=== PATIENT | female | born 1990 | race Caucasian/White ===

== ENCOUNTER 2023-09-18 10:26 | Outpatient (OUT) | payer OTHER, SELFPAY ==
[2023-09-18 10:50] LABS: Basophils Percent Auto 0.3 % (0.2-2.0); Eosinophils Absolute Auto 0.1 10^3/uL (0.0-0.7); Eosinophils Percent Auto 1.4 % (0.9-7.0); Hematocrit 44.4 % (36.0-48.0); Hemoglobin 14.1 g/dL (12.0-16.0); Lymphocytes Absolute Auto 1.6 10^3/uL (1.2-3.8); Lymphocytes Percent Auto 26.6 % (20.5-60.0); Mean Corpuscular HGB Conc 31.8 g/dL (29.9-35.2); Mean Corpuscular Hemoglobin 29.4 pg (26.7-34.0); Mean Corpuscular Volume 92.7 fL (81.0-99.0); Mean Platelet Volume 12.7 fL (9.5-13.5); Monocytes Absolute Auto 0.4 10^3/uL (0.3-0.8); Monocytes Percent Auto 6.3 % (1.7-12.0); Neutrophils Absolute Auto 3.8 10^3/uL (1.4-6.5); Neutrophils Percent Auto 65.4 % (43.0-75.0); Platelet Count 180 10^3/uL (150-450); Red Blood Count 4.79 10^6/uL (4.20-5.40); Red Cell Distribution Width 12.4 % (11.0-15.0); White Blood Count 5.8 10^3/uL (4.0-11.0)
[2023-09-18 11:19] LABS: HCG Quantitative <1 mIU/mL; Thyroid Stimulating Hormone 0.981 uIU/mL (0.358-3.740)
[2023-09-18 11:37] LABS: Estimated Average Glucose 97 mg/dL
[2023-09-18 11:42] LABS: Free T4 0.95 ng/dL (0.76-1.46)
[2023-09-19 08:12] LABS: FSH 12.8 mIU/mL (.); Luteinizing Hormone(LH) 11.2 mIU/mL (.); Prolactin 3.1 ng/mL (4.8-23.3)
[2023-09-23 15:09] LABS: DHEA, Serum 349 ng/dL (31-701)
== END 2023-09-18 10:27 | disposition home or self-care (01) ==
LOC: LAB 10:29
PROVIDERS: Visit Provider Obstetrics & Gynecology
DX: N92.6 Irregular menstruation, unspecified (principal)
CPT/HCPCS: 36415; 82626; 82627; 83001; 83002; 83036; 84146; 84439; 84443; 84702; 85025; 99999

== ENCOUNTER 2023-10-09 14:40 | Outpatient (OUT) | payer OTHER, SELFPAY ==
--- NOTE | 2023-10-09 | US_ITS ---
The [address] [address] Patient Name: JASMINE DAS MRN: [id number] date: 1990 Sex: F Assigned Patient Location: US Current Patient Location: US Accession/Order Number: [id number] Exam Date: 10/09/2023 14:41 Report Date: 10/09/2023 17:21 At the request of: DEVI CARR Procedure: US pelvis transvaginal EXAM: US pelvis transvaginal HISTORY: INFERTILITY, IRREGULAR MENSES COMPARISON: None. TECHNIQUE: Pelvic sonography was performed utilizing grayscale and color Doppler technique. FINDINGS: Retroverted uterus measures 7.2 x 3.6 x 4.3 cm. Uterine endometrial stripe measures 0.5 cm in thickness. Right ovary measures 3.0 x 1.9 x 3.0 cm. Normal right ovarian parenchyma. Left ovary measures 2.1 x 1.5 x 1.8 cm. Normal left ovarian parenchyma. No significant free fluid within the pelvis. US/US pelvis transvaginal IMPRESSION: Normal examination. Electronically authenticated by: LASHANDA VELEZ Date: 10/09/2023 17:21
== END 2023-10-09 14:41 | disposition home or self-care (01) ==
LOC: US 14:40
PROVIDERS: Visit Provider Obstetrics & Gynecology
DX: N92.6 Irregular menstruation, unspecified (principal)
CPT/HCPCS: 76830

== ENCOUNTER 2023-10-23 14:33 | Outpatient (RCR) | payer OTHER, SELFPAY ==
[2023-10-23 15:38] LABS: HCG Quantitative 1735 mIU/mL
== END 2023-10-23 16:57 | disposition home or self-care (01) ==
LOC: LAB 14:33
PROVIDERS: Visit Provider Obstetrics & Gynecology
DX: N92.6 Irregular menstruation, unspecified (principal)
CPT/HCPCS: 36415; 84702

== ENCOUNTER 2023-10-25 07:10 | Outpatient (OUT) | payer OTHER, SELFPAY ==
[2023-10-28 09:56] LABS: HCG Quantitative 4015 mIU/mL
== END 2023-10-25 07:11 | disposition home or self-care (01) ==
PROVIDERS: Visit Provider Obstetrics & Gynecology
DX: N92.6 Irregular menstruation, unspecified (principal)
CPT/HCPCS: 36415; 84702; 84703

== ENCOUNTER 2023-12-05 09:36 | Outpatient (OUT) | payer OTHER, SELFPAY ==
--- NOTE | 2023-12-05 09:37 | US_ITS ---
[address] [address] Patient Name: JASIMNE DAS MRN: [id number] date: 1990 Sex: F Assigned Patient Location: US Current Patient Location: US Accession/Order Number: [id number] Exam Date: 12/05/2023 09:38 Report Date: 12/05/2023 10:18 At the request of: DEVI CARR Procedure: US OB transvaginal EXAMINATION: US OB transvaginal HISTORY: Missed menses COMPARISON: No relevant comparison available. FINDINGS: Transvaginal images Guerrero intrauterine gestation Gestational sac: 4.8 cm, 10 weeks 4 days CRL: 3.8 cm, 10 weeks 5 days Heart rate: 164 bpm Cervix: Closed, 4.9 cm The uterus is normal The right ovary is normal. Left ovary is not visualized Clinical age: Unknown Ultrasound age: 10 weeks 5 days Ultrasound ANNABELLE: 06/27/2024 US/US OB transvaginal IMPRESSION: Viable guerrero intrauterine gestation measuring 10 weeks 5 days Electronically authenticated by: ABRAHAM DUGGAN Date: 12/05/2023 10:18
== END 2023-12-05 09:37 | disposition home or self-care (01) ==
LOC: US 09:36
PROVIDERS: Visit Provider Obstetrics & Gynecology
DX: Z34.91 Encounter for supervision of normal pregnancy, unspecified, first trimester (principal); Z3A.10 10 weeks gestation of pregnancy; N92.6 Irregular menstruation, unspecified
CPT/HCPCS: 76817

== ENCOUNTER 2024-01-22 19:08 | Outpatient (REF) | payer OTHER, SELFPAY ==
[2024-01-27 15:10] LABS: Age Gdln ACOG Testing Note (.); HPV Aptima Negative (Negative); IGP, Aptima HPV, rfx 16/18,45 Note (.)
== END 2024-01-22 19:09 | disposition home or self-care (01) ==
LOC: LAB 19:08
PROVIDERS: Visit Provider Obstetrics & Gynecology
DX: Z01.419 Encounter for gynecological examination (general) (routine) without abnormal findings (principal)
CPT/HCPCS: 87624; G0145

== ENCOUNTER 2024-02-19 08:28 | Outpatient (OUT) | payer OTHER, SELFPAY ==
--- NOTE | 2024-02-19 08:30 | US_ITS ---
[address] [address] Patient Name: JASMINE DAS MRN: [id number] date: 1990 Sex: F Assigned Patient Location: [facility] Current Patient Location: [facility] Accession/Order Number: [id number] Exam Date: 02/19/2024 08:31 Report Date: 02/19/2024 09:28 At the request of: DEVI CARR Procedure: US OB anatomy EXAMINATION: US OB anatomy, US OB cervical length HISTORY: ANATOMY COMPARISON: No relevant comparison available. TECHNIQUE: Transabdominal sonographic examination was performed for obstetrical and evaluation. FINDINGS: Number: 1 Heart Rate: 158.0 bpm H.B. /min Amniotic Fluid Volume: Subjectively normal position: Cephalic presentation, longitudinal lie Placental Location: Anterior. The placental edge is 8.5 cm from the internal os Cervix Length: 5.4 cm , closed Normal anatomy: Lateral ventricles, cerebellum, posterior fossa, nose, lips, orbits, four-chamber heart, RVOT, LVOT, diaphragm, stomach, kidneys, abdominal cord insertion, bladder, umbilical arteries, three-vessel cord, spine, extremities BIOMETRY: BPD: 5.0 cm 21 weeks 1 days , 33% HC: 19.1 cm 21 weeks 2 days, 29% AC: 16.3 cm 21 weeks 3 days, 36% FL: 3.8 cm 22 weeks 0 days , 54% EFW:435.4 grams; 15 ounces, 45% FL/AC: 23.0 FL/BPD: 74.7 HC/AC: 1.2 GESTATIONAL AGE: Age by EDC: 21 weeks 4 days Age by current US: 21 weeks 3 days ANNABELLE by current US: 06/28/2024 ANNABELLE by EDC: 06/27/2024 US/US OB anatomy IMPRESSION: Normal anatomy scan Closed cervix measuring 5.4 cm in length *Reference: [employer] Practice Guideline for the performance of Obstetric Ultrasound Examinations, August 24, 2007. Electronically authenticated by: ABRAHAM DUGGAN Date: 02/19/2024 09:28
--- NOTE | 2024-02-19 08:30 | US_ITS ---
[address] [address] Patient Name: JASMINE DAS MRN: [id number] date: 1990 Sex: F Assigned Patient Location: [facility] Current Patient Location: [facility] Accession/Order Number: [id number] Exam Date: 02/19/2024 08:30 Report Date: 02/19/2024 09:28 At the request of: DEVI CARR Procedure: US OB cervical length EXAMINATION: US OB anatomy, US OB cervical length HISTORY: ANATOMY COMPARISON: No relevant comparison available. TECHNIQUE: Transabdominal sonographic examination was performed for obstetrical and evaluation. FINDINGS: Number: 1 Heart Rate: 158.0 bpm H.B. /min Amniotic Fluid Volume: Subjectively normal position: Cephalic presentation, longitudinal lie Placental Location: Anterior. The placental edge is 8.5 cm from the internal os Cervix Length: 5.4 cm , closed Normal anatomy: Lateral ventricles, cerebellum, posterior fossa, nose, lips, orbits, four-chamber heart, RVOT, LVOT, diaphragm, stomach, kidneys, abdominal cord insertion, bladder, umbilical arteries, three-vessel cord, spine, extremities BIOMETRY: BPD: 5.0 cm 21 weeks 1 days , 33% HC: 19.1 cm 21 weeks 2 days, 29% AC: 16.3 cm 21 weeks 3 days, 36% FL: 3.8 cm 22 weeks 0 days , 54% EFW:435.4 grams; 15 ounces, 45% FL/AC: 23.0 FL/BPD: 74.7 HC/AC: 1.2 GESTATIONAL AGE: Age by EDC: 21 weeks 4 days Age by current US: 21 weeks 3 days ANNABELLE by current US: 06/28/2024 ANNABELLE by EDC: 06/27/2024 US/US OB cervical length IMPRESSION: Normal anatomy scan Closed cervix measuring 5.4 cm in length *Reference: [employer] Practice Guideline for the performance of Obstetric Ultrasound Examinations, August 24, 2007. Electronically authenticated by: ABRAHAM DUGGAN Date: 02/19/2024 09:28
== END 2024-02-19 08:29 | disposition home or self-care (01) ==
LOC: NOMS 08:29
PROVIDERS: Visit Provider Obstetrics & Gynecology
DX: Z34.92 Encounter for supervision of normal pregnancy, unspecified, second trimester (principal); Z3A.21 21 weeks gestation of pregnancy; Z36.89 Encounter for other specified antenatal screening
CPT/HCPCS: 76805; 76817

== ENCOUNTER 2024-06-03 20:30 | Outpatient (REF) | payer OTHER, SELFPAY | END 2024-06-03 20:31 | disposition home or self-care (01) | LOC: LAB 20:30 | PROVIDERS: Visit Provider Obstetrics & Gynecology | DX: Z34.93 Encounter for supervision of normal pregnancy, unspecified, third trimester (principal) | CPT/HCPCS: 36415; 87081 ==

== ENCOUNTER 2024-07-01 10:26 | Inpatient (IN) | payer OTHER, SELFPAY ==
[2024-07-01] VITALS (10 sets, daily range): BP systolic 106–123; BP diastolic 59–82; PULSE 74–99; TEMP 36.1–36.6
[2024-07-01 11:28] LABS: Hematocrit 35.4 % (36.0-48.0); Hemoglobin 11.2 g/dL (12.0-16.0); Mean Corpuscular HGB Conc 31.6 g/dL (29.9-35.2); Mean Corpuscular Hemoglobin 25.9 pg (26.7-34.0); Mean Corpuscular Volume 81.8 fL (81.0-99.0); Mean Platelet Volume 12.8 fL (9.5-13.5); Platelet Count 187 10^3/uL (150-450); Red Blood Count 4.33 10^6/uL (4.20-5.40); Red Cell Distribution Width 14.8 % (11.0-15.0); White Blood Count 9.5 10^3/uL (4.0-11.0)
[2024-07-01 11:52] LABS: Amphetamine Screen Urine NEGATIVE (NEGATIVE); Barbiturates Screen Urine NEGATIVE (NEGATIVE); Benzodiazepines Screen Urine NEGATIVE (NEGATIVE); Buprenorphine Screen Urine NEGATIVE (NEGATIVE); Cannabinoid Screen Urine NEGATIVE (NEGATIVE); Cocaine Screen Urine NEGATIVE (NEGATIVE); Methadone Screen Urine NEGATIVE (NEGATIVE); Methamphetamines Screen Urine NEGATIVE (NEGATIVE); Opiate Screen Urine NEGATIVE (NEGATIVE); Oxycodone Screen Urine NEGATIVE (NEGATIVE); Phencyclidine Screen Urine NEGATIVE (NEGATIVE); Tricyclic Antidepressant Urine NEGATIVE (NEGATIVE)
[2024-07-01] MEDS: OXYTOCIN/0.9 % SODIUM CHLORIDE 20 UNITS/1,000 ML PLAST..BAG 125 UNIT IV (14:53)
--- NOTE | 2024-07-01 15:57 | PM.OBPRCVD ---
Procedure Intrapartal events: None, Acceleration and Deceleration Induction method: none Delivery monitor: none Route of delivery: Episiotomy Description: none L&D Laceration Description: none Estimated blood loss (mL): 200 Anesthesia type: None Disposition: floor Delivery date: 07/01/24 Gender: female presentation: vertex Placental delivery description: Spontaneous cord description: 3 Vessels
[2024-07-01] MEDS: GLYCERIN/WITCH HAZEL PADS 1 PAD TOPICAL (17:10)
[2024-07-01] MEDS: BENZOCAINE/MENTHOL 85 GRAM SPRAY BOTTLE 1 APPLIC TOPICAL (17:10)
[2024-07-01] MEDS: ACETAMINOPHEN 325 MG TABLET 650 MG PO (23:20)
[2024-07-02] MEDS: IBUPROFEN 600 MG TABLET PO ×3 (01:26→19:47)
[2024-07-02 04:00] VITALS: TEMP 36.8
[2024-07-02 05:13] VITALS: BP 120/76; PULSE 68
[2024-07-02 07:35] LABS: Basophils Percent Auto 0.3 % (0.2-2.0); Eosinophils Absolute Auto 0.1 10^3/uL (0.0-0.7); Eosinophils Percent Auto 0.4 % (0.9-7.0); Hematocrit 35.2 % (36.0-48.0); Hemoglobin 10.7 g/dL (12.0-16.0); Immature Granulocytes Abs Auto 0.08 10^3/uL (0.00-0.03); Immature Granulocytes Pct Auto 0.6 % (0.0-0.5); Lymphocytes Absolute Auto 2.1 10^3/uL (1.2-3.8); Lymphocytes Percent Auto 16.6 % (20.5-60.0); Mean Corpuscular HGB Conc 30.4 g/dL (29.9-35.2); Mean Corpuscular Hemoglobin 25.2 pg (26.7-34.0); Mean Corpuscular Volume 82.8 fL (81.0-99.0); Mean Platelet Volume 12.4 fL (9.5-13.5); Monocytes Absolute Auto 0.7 10^3/uL (0.3-0.8); Monocytes Percent Auto 5.3 % (1.7-12.0); Neutrophils Absolute Auto 9.9 10^3/uL (1.4-6.5); Neutrophils Percent Auto 76.8 % (43.0-75.0); Platelet Count 181 10^3/uL (150-450); Red Blood Count 4.25 10^6/uL (4.20-5.40); Red Cell Distribution Width 14.9 % (11.0-15.0); White Blood Count 12.9 10^3/uL (4.0-11.0)
--- NOTE | 2024-07-02 08:12 | P.OBPN_ITS ---
OB - PN: Subj Subjective Patient comments: no complaints [place] status: doing well [place] feeding status: exclusively Exam Constitutional Vital Signs, click to edit/add: Last Vital Signs Temp 97.0 F L 07/01/24 15:02 Pulse 68 07/02/24 05:13 Resp 12 07/01/24 11:40 BP 120/76 07/02/24 05:13 O2 Del Method Room Air 07/01/24 11:40 Documenting provider has reviewed patient's vital signs: yes Common normals: no apparent distress, average body habitus, oriented x3, no horowitz itations, healthy appearing, alert and well nourished HENMT Common normals: normocephalic Eye Common normals: EOMs intact bilaterally General eye: normal appearance of both eyes Neck & C-Spine Common normals: full ROM and no lymphadenopathy General: normal visual inspection Thyroid: thyroid normal Lymph Lymphatic: no lymphadenopathy noted Chest Common normals: inspection of chest normal Respiratory Common normals: normal respiratory effort Effort & inspection: able to speak in complete sentences Cardio Common normals: regular rate and regular rhythm Rate: regular rate Rhythm: regular rhythm GI Common normals: Normal to inspection, nondistended, normoactive bowel sounds present, soft to palpation and non-tender Auscultation: normoactive bowel sounds Palpation: soft Common normals: no CVA tenderness Back & Pelvis Common normals: no CVA tenderness Thoracic spine/upper back: normal to inspection Extremity Common normals: normal to inspection, full ROM, normal capillary refill, no joint enlargement, no clubbing, cyanosis or edema, no calf tenderness and no pedal edema Neuro Common normals: oriented x3, CN's II-XII intact bilaterally, moves all extremities, no focal motor deficits, no sensory deficits noted, deep tendon reflexes 2+ bilaterally and gait normal Sensorium/orientation: awake, alert, oriented to person, oriented to place and oriented to time Psych Common normals: mental status grossly normal, thought process normal, cooperative, affect normal, speech normal, activity/motor behavior normal, denies hallucinations, denies homicidal ideation and denies suicidal ideation Attitude: calm Results Labs Labs: Short CBC 07/01/24 07/02/24 Range/Units 11:10 07:25 WBC 9.5 12.9 H (4.0-11.0) 10^3/uL Hgb 11.2 L 10.7 L (12.0-16.0) g/dL Hct 35.4 L 35.2 L (36.0-48.0) % Plt Count 187 181 (150-450) 10^3/uL OB - PN: A/P Plan - Vaginal Delivery day: 1 Plan: routine care Time Spent with Patient Time: Total time spent is greater than 50% in coordination of care (as documented) at patient's floor/unit and/or counseling patient: Total time spent with greater than 50% in coordination of care (as documented) at patient's floor/unit and/or counseling patient: less than 15 minutes
[2024-07-02] MEDS: DOCUSATE SODIUM 100 MG CAPSULE PO ×2 (08:13→19:47)
[2024-07-02] MEDS: ACETAMINOPHEN 325 MG TABLET 650 MG PO ×2 (08:14→16:36)
[2024-07-02 08:16] VITALS: BP 106/68; PULSE 81
[2024-07-02 08:31] VITALS: TEMP 36.7
[2024-07-02 16:03] VITALS: BP 122/66; PULSE 87; TEMP 36.9
[2024-07-03 01:10] VITALS: BP 102/63; PULSE 73; TEMP 36.5
[2024-07-03] MEDS: ACETAMINOPHEN 325 MG TABLET 650 MG PO (01:15)
[2024-07-03] MEDS: IBUPROFEN 600 MG TABLET PO (05:41)
[2024-07-03 08:00] VITALS: BP 111/76; PULSE 94
[2024-07-03 08:15] VITALS: TEMP 36.7
--- NOTE | 2024-07-03 09:08 | PM.OBPN ---
OB - PN: Subj Subjective Patient comments: no complaints and pain well controlled [employer] status: doing well Exam Constitutional Vital Signs, click to edit/add: Last Vital Signs Temp 97.7 F 07/03/24 01:10 Pulse 94 H 07/03/24 08:00 Resp 16 07/03/24 01:10 BP 111/76 07/03/24 08:00 O2 Del Method Room Air 07/03/24 01:10 Documenting provider has reviewed patient's vital signs: yes Common normals: no apparent distress Respiratory Common normals: normal respiratory effort and clear to auscultation bilaterally Cardio Common normals: regular rate and regular rhythm GI Common normals: Normal to inspection, nondistended, normoactive bowel sounds present Extremity Common normals: no calf tenderness OB - PN: A/P Plan - Vaginal Delivery day: 2 Plan: routine care, discharge home and follow up 6 weeks Time Spent with Patient Time: Total time spent is greater than 50% in coordination of care (as documented) at patient's floor/unit and/or counseling patient: Total time spent with greater than 50% in coordination of care (as documented) at patient's floor/unit and/or counseling patient: less than 15 minutes
== END 2024-07-03 14:29 | disposition home or self-care (01) | DRG 807 ==
PROVIDERS: Admitting Provider Obstetrics & Gynecology; Visit Provider Obstetrics & Gynecology
DX: O80 Encounter for full-term uncomplicated delivery (principal); Z37.0 Single live birth; Z3A.40 40 weeks gestation of pregnancy
CPT/HCPCS: 36415; 59050; 59410; 80307; 85025; 85027; 86850; 86900; 86901; 96374

== ENCOUNTER 2024-07-14 07:53 | Outpatient (OUT) | payer OTHER, SELFPAY | END 2024-07-14 10:20 | disposition home or self-care (01) | LOC: FBCO 07:55 | PROVIDERS: Visit Provider Obstetrics & Gynecology | DX: Z39.1 Encounter for care and examination of lactating mother (principal) | CPT/HCPCS: G0463 ==

== ENCOUNTER 2025-01-27 14:52 | Outpatient (REF) | payer OTHER, SELFPAY ==
[2025-02-02 10:12] LABS: Age Gdln ACOG Testing Note (.); HPV Aptima Negative (Negative); IGP, Aptima HPV, rfx 16/18,45 Note (.)
== END 2025-01-27 14:53 | disposition home or self-care (01) ==
LOC: LAB 14:52
PROVIDERS: Visit Provider Obstetrics & Gynecology
DX: Z01.419 Encounter for gynecological examination (general) (routine) without abnormal findings (principal)
CPT/HCPCS: 87624; 88175